=== PATIENT | female | born 2005 | race Two or more races ===

== ENCOUNTER 2025-06-04 08:20 | Emergency (ER) | payer MEDICAID, SELFPAY ==
[2025-06-04 08:21] VITALS: BMI 25.9
[2025-06-04 08:35] VITALS: BP 136/93; PULSE 90; RESP 18; TEMP 36.7; O2SAT 98
--- NOTE | 2025-06-04 08:37 | PD.EDHAND ---
Upper Extremity Injury RME/HPI General Chief Complaint: Hand/Wrist Problems Stated Complaint: SMASHED RIGHT THUMB LAST NIGHT Time Seen by Provider: 06/04/25 08:32 Source: patient, family, RN notes reviewed and old records reviewed Arrival date/time: 06/04/25 08:20 Mode of arrival: ambulatory Limitations: no limitations RME / HPI RME / HPI narrative: 20yof presents to the ED for hand pain s/p injury last night. Patient reports she slammed right hand in the car door, c/o thumb and index finger pain. No deformity reported. No medications or treatments since injury. Related Data Home Medications ?Medication ?Instructions ?Recorded ?Confirmed levetiracetam 250 mg tablet 250 mg PO BID 08/18/18 08/18/18 (Keppra) naproxen 250 mg tablet 250 mg PO BID PRN Pain 08/18/18 08/18/18 Previous Rx's ?Medication ?Instructions ?Recorded docusate sodium 100 mg capsule 100 mg PO BID #40 caps 11/10/18 tramadol 50 mg tablet 50 mg PO Q6H PRN pain #20 tabs 11/10/18 ibuprofen 600 mg tablet 600 mg PO Q6H PRN pain #30 tabs 06/04/25 Allergies Allergy/AdvReac Type Severity Reaction Status Date / Time No Known Allergies Allergy Verified 06/04/25 08:23 Review of Systems Review of Systems Systems Reviewed: All systems reviewed, normal except as documented Musculoskeletal Musculoskeletal: Reports arthralgias, Denies deformity, Reports joint swelling, Denies numbness and Denies tingling Neurologic Neurologic: Denies numbness and Denies tingling Past Medical History Past Medical History NEUROLOGIC: Positive Traumatic Brain Injury RESPIRATORY: Positive Asthma Surgical History SURGICAL: Positive Neurologic Surgery Social History SMOKING STATUS: Never smoker SUBSTANCE USE: does not use ALCOHOL: Never ED Exam General Limitations: Present no limitations General appearance: Present alert and in no apparent distress Head Head exam: Present atraumatic and normocephalic Eye Eye exam: Present normal appearance, PERRL and EOMI ENT ENT exam: Present normal exam and mucous membranes moist Neck Neck exam: Present normal inspection and full ROM Chest Chest inspection: Present normal inspection and symmetric chest wall rise Respiratory Respiratory exam: Present normal lung sounds bilaterally; Absent respiratory distress Cardiovascular Cardiovascular exam: Present regular rate and normal rhythm Extremities Exam Extremities exam: Present other (Tenderness to right hand, index finger, thumb. Limited ROM 2/2 pain. Able to wiggle all fingers. <2 cap refill, sensation intact. Proximal subungual hematoma to thumbnail (~30% of nail) ) Neurological Exam Neurological exam: Present alert and oriented X3 Psychiatric Psychiatric exam: Present normal affect and normal mood Skin Skin exam: Present warm, dry and intact Course Quality Measures none Orders Category Date Time Status Splint / Immobilizer STAT Care 06/04/25 10:17 Completed XR hand comp RT min 3V Stat Exams 06/04/25 08:42 Completed Acetaminophen Tab [Tylenol ES Tab] Med 06/04/25 08:42 Discontinued 1,000 mg PO X1 ONE Ibuprofen Tab [Motrin Tab] Med 06/04/25 08:42 Discontinued 600 mg PO X1 ONE Vital Signs Vital signs: Vital Signs Temperature 98.1 F 06/04/25 08:35 Pulse Rate 90 06/04/25 08:35 Respiratory Rate 18 06/04/25 08:35 Blood Pressure 136/93 H 06/04/25 08:35 Pulse Oximetry (%) 98 06/04/25 08:35 Oxygen Delivery Method Room Air 06/04/25 08:35 PROCEDURES: Splint Fabrication: Pre-Fabricated Type: Finger Protector Reason for Splint: Improve Function, Optimal Positioning, Pain Management, Prevent Deformities and Support Joint/Muscle Circulation Distal to Splint: Yes Movement Distal to Splint: Yes Senation Distal to Splint: Yes Extremity Injury MDM Narrative MDM Narrative:: 20yof presents to the ED for hand pain s/p injury last night. Patient reports she slammed right hand in the car door, c/o thumb and index finger pain. No deformity reported. No medications or treatments since injury. Patient is neurovascularly intact, compartments soft. Encouraged RICE therapy, Motrin/Tylenol prn pain. Ortho referral given for follow-up as needed. Stable for discharge, RTED precautions given. Patient data External records reviewed:: [facility] previous records (01/02/23 ED visit for headache) Clinical information provided by:: patient Social determinants that could affect healthcare access:: other (specify) (poor access to healthcare) Patient has the following chronic illnesses:: TBI How is presenting disease/condition affected by chronic disease/condition?: uneffected by Evaluation data The following diagnostics were reviewed and interpreted by me:: radiology exam(s) Lab and/or radiology exams considered but not ordered:: none Interpretation Summary: hand xrays: tuft/avulsion fx distal phalanx first digit per my read Medications / Prescriptions Medications or Prescriptions considered but not ordered:: none Medication administrations:: Medication Administration History Discontinued Medications Acetaminophen (Acetaminophen 500 Mg Tablet) 1,000 mg PO X1 ONE Stop: 06/04/25 08:43 Last Admin: 06/04/25 08:53 Dose: 1,000 mg Documented By: ROMA Ibuprofen (Ibuprofen Tab 600 Mg Tablet) 600 mg PO X1 ONE Stop: 06/04/25 08:43 Last Admin: 06/04/25 08:53 Dose: 600 mg Documented By: ROMA Above medications administered in ED Consultations Consultation(s) initiated? (list below): No Diagnosis Upper Extremity Injury Differential Diagnosis: other (Fracture, dislocation, sprain, strain, contusion, MSK pain) Most likely diagnosis given after review of the tests above:: Thumb fracture Admission Indicated Admission indicated?: not indicated Admission Request Was there a request for admission?: No Disposition Plan Disposition Plan: Discharge Discharge Attestation Discharge Attestation: The patient and all family members were given an opportunity to ask questions and understood the discharge instructions. Discharge instructions specifically effects, indications for sooner follow up or return to the emergency department, and the expected course of current diagnosis. Patient condition: Stable Discharge Plan Plan Patient Disposition: HOME (Self Care) Patient condition on transfer: Stable Prescriptions/Referrals Prescriptions/Med Rec: New ibuprofen 600 mg tablet 600 mg PO Q6H PRN (Reason: pain) Qty: 30 0RF No Action naproxen 250 mg Tablet 250 mg PO BID PRN (Reason: Pain) levetiracetam [Keppra] 250 mg Tablet 250 mg PO BID docusate sodium 100 mg Capsule 100 mg PO BID Qty: 40 0RF tramadol 50 mg tablet 50 mg PO Q6H MDD 4 PRN (Reason: pain) Qty: 20 0RF Referrals: Georgette Lackey MD [Primary Care Provider] - In 1 week Eldon Davison MD [Physician, Orthopedics] Referral Note: called to schedule an appointment as needed Problem List Clinical Impression: Closed fracture of tuft of distal phalanx of right thumb, Hand pain, right, Subungual hematoma of right thumb Patient/Caregiver Discharge Instructions Education Materials: ED Fracture, Thumb Print Language: Maldivian Stand Alone Forms: Isabel Award Info., Work/School Release, Patient Portal Info Letter PA/PRODUCE WEIGHER Supervising Physician PA/PRODUCE WEIGHER Supervising Physician: Todd
--- NOTE | 2025-06-04 08:42 | XR_ITS ---
Examination: Hand, right 3 views Technique: Hand AP, oblique, lateral 3 views Date and time of exam: June 04, 2025 0922 hrs. Indications: Injury to the hand today pain Findings: Small nondisplaced fractures ungual tuft tip distal phalanx first digit No dislocation Impression: Small nondisplaced fractures ungual tuft tip distal phalanx first digit
[2025-06-04] MEDS: IBUPROFEN TAB 600 MG TABLET PO (08:53)
[2025-06-04] MEDS: ACETAMINOPHEN 500 MG TABLET 1000 MG PO (08:53)
== END 2025-06-04 10:51 | disposition home or self-care (01) ==
PROVIDERS: Emergency Provider Emergency Medicine; PCP Internal Medicine
DX: S62.524A Nondisplaced fracture of distal phalanx of right thumb, initial encounter for closed fracture (principal); W23.0XXA Caught, crushed, jammed, or pinched between moving objects, initial encounter; Y92.810 Car as the place of occurrence of the external cause
CPT/HCPCS: 29130; 73130; 99284; A9270

== ENCOUNTER → 2025-08-16 | Outpatient (CLI) | payer MEDICAID, SELFPAY ==
--- NOTE | 2025-08-16 10:38 | XR_ITS ---
Examination: Hand, right 3 views Technique: Hand AP, oblique, lateral 3 views Date and time of exam: August 16, 2025, 10:48 a.m. COMPARISON: 06/04/2025 FINDINGS: Again noted tiny fracture fragment off the ungual tuft distal phalanx first digit Moderate extra-articular bone demineralization No foreign body IMPRESSION: Again noted tiny fracture fragment off the ungual tuft of distal phalanx first digit
== END | disposition home or self-care (01) ==
PROVIDERS: PCP Internal Medicine; Referring Provider Orthopaedic Surgery; Visit Provider Orthopaedic Surgery
DX: S62.521D Displaced fracture of distal phalanx of right thumb, subsequent encounter for fracture with routine healing (principal); X58.XXXD Exposure to other specified factors, subsequent encounter
CPT/HCPCS: 73130